=== PATIENT | female | born 1985 | race Caucasian/White ===

== ENCOUNTER 2016-08-04 09:15 | Emergency (ER) | payer BC ==
[2016-08-04 10:00] VITALS: BP 125/93
--- NOTE | 2016-08-04 10:25 | UC ---
FLU HPI - HPI Summary HPI Summary: 9 weeks , had cold symptoms for a couple of days, and temperature, called primary MD and is concerned that she has the flu - History of Current Complaint Chief Complaint: UCRespiratory Stated Complaint: FLU LIKE COMPLAINT Time Seen by Provider: 08/04/16 09:55 Hx Obtained From: Patient Hx Last Menstrual Period: 9 weeks ago ?: Yes Onset/Duration: Sudden Onset, Lasting Days - 3, Still Present - but better today than yesterday Severity Currently: Mild Severity Initially: Mild Associated Signs & Symptoms: Positive: Fever - subjective, Cough, Nasal Congestion - Allergy/Home Medications Allergies/Adverse Reactions: Allergies Allergy/AdvReac Type Severity Reaction Status Date / Time Cefaclor Allergy Intermediate Hives Verified 07/07/15 03:06 Home Medications: Home Medications Acetaminophen [Tylenol] 325 mg PO 08/04/16 [History] PMH/Surg Hx/FS Hx/Imm Hx Previously Healthy: No Cardiovascular History Of: Reports: Hypertension Psychological History Of: Reports: Depression - situational 2006 - Surgical History Surgical History: Yes Surgery Procedure, Year, and Place: rt ear lobe re constructed - Family History Known Family History: Positive: None Family History: denies cardiovascular issues in family lineage - Social History Occupation: Employed Full-time Lives: With Family Alcohol Use: None Substance Use Type: None Smoking Status (MU): Former Smoker Type: Cigarettes Length of Time of Smoking/Using Tobacco: 5 years Have You Smoked in the Last Year: No When Did the Patient Quit Smoking/Using Tobacco: prior to prenancy - Immunization History Most Recent Influenza Vaccination: 05/18/15 Most Recent Tetanus Shot: 03/29/15 Most Recent Pneumonia Vaccination: none Review of Systems Constitutional: Negative Skin: Negative Eyes: Negative ENT: Ear Ache, Nasal Discharge Respiratory: Cough Cardiovascular: Negative Gastrointestinal: Negative Genitourinary: Negative Motor: Negative Neurovascular: Negative Musculoskeletal: Negative Neurological: Negative Psychological: Negative All Other Systems Reviewed And Are Negative: Yes Physical Exam Triage Information Reviewed: Yes Appearance: Well-Appearing, No Pain Distress, Well-Nourished Vital Signs: Initial Vital Signs Temp 98.9 F 08/04/16 09:54 Pulse 109 08/04/16 09:54 Resp 18 08/04/16 09:54 BP 125/93 08/04/16 09:54 Pulse Ox 99 08/04/16 09:54 Vital Signs Reviewed: Yes Eye Exam: Normal Eyes: Positive: Conjunctiva Clear ENT Exam: Normal ENT: Positive: Normal ENT inspection, Hearing grossly normal, Pharynx normal, Nasal congestion, Nasal drainage, TMs normal. Negative: Tonsillar swelling, Tonsillar exudate, Trismus, Muffled/hoarse voice Dental Exam: Normal Neck exam: Normal Neck: Positive: Supple, Nontender, No Lymphadenopathy Respiratory Exam: Normal Respiratory: Positive: Chest non-tender, Lungs clear, Normal breath sounds, No respiratory distress, No accessory muscle use Cardiovascular Exam: Normal Cardiovascular: Positive: RRR, No Murmur, Pulses Normal, Brisk Capillary Refill Musculoskeletal Exam: Normal Musculoskeletal: Positive: Strength Intact, ROM Intact, No Edema Neurological Exam: Normal Neurological: Positive: Alert, Muscle Tone Normal Psychological Exam: Normal Skin Exam: Normal Diagnostics - Laboratory Diagnostic Studies Completed/Ordered: Influenza A/B (-) Flu Course/Dx - Course Course Of Treatment: increase fluids, cool mist humidification, prn tylenol, follow up with pcp - Differential Dx/Diagnosis Differential Diagnosis/HQI/PQRI: Influenza, Upper Respiratory Infection Provider Diagnoses: URI, 1st trimester Discharge - Discharge Plan Condition: Stable Disposition: HOME Patient Education Materials: Upper Respiratory Infection (ED), First Trimester (ED) Referrals: [facility] [Provider Group] - If Needed
== END 2016-08-04 10:30 | disposition home or self-care (01) ==
LOC: UCEAST 09:15
DX: O26.891 Other specified pregnancy related conditions, first trimester (principal); Z3A.09 9 weeks gestation of pregnancy; J06.9 Acute upper respiratory infection, unspecified; Z88.1 Allergy status to other antibiotic agents; Z87.891 Personal history of nicotine dependence
CPT/HCPCS: 87502; 99211; G0463

== ENCOUNTER 2017-03-11 03:34 | Inpatient (IN) | payer BC ==
[2017-03-11] MEDS ORDERED: Dibucaine 1% 28.35 GM TUBE PR PRN (05:52)
[2017-03-11] MEDS ORDERED: Glycerin ADULT SUPP PR PRN (05:52)
[2017-03-11] MEDS ORDERED: Witch Hazel PAD* JAR TOPICAL PRN (05:52)
[2017-03-11] MEDS ORDERED: OXYTOCIN* 10 UNITS/ML 1 ML VIAL IM ONE (05:52)
[2017-03-11] MEDS ORDERED: Misoprostol TAB* 200 MCG PR ONE (05:52)
[2017-03-11] MEDS ORDERED: Acetaminophen TAB* 325 MG PO PRN (05:52)
[2017-03-11] MEDS: Ibuprofen TAB* 600 MG PO PRN (09:11)
[2017-03-11] MEDS: Docusate CAP* 100 MG PO SCH ×2 (09:11→21:36)
[2017-03-12] MEDS: Docusate CAP* 100 MG PO SCH ×4 (04:44→20:18)
[2017-03-12 07:37] LABS: Hematocrit 27 % (35-47)
[2017-03-12 07:39] LABS: Hemoglobin 9.3 g/dl (12.0-16.0); Mean Corpuscular HGB Conc 35 g/dl (31-36); Mean Corpuscular Hemoglobin 31 pg (27-31); Mean Corpuscular Volume 89 fL (80-97); Mean Platelet Volume 9 um3 (7.4-10.4); Red Blood Count 3.04 10^6/ul (4.0-5.4); Red Cell Distribution Width 14 % (10.5-15)
[2017-03-12] MEDS: Ferrous Gluconate TAB* 324 MG TAB PO SCH ×2 (08:28→20:18)
[2017-03-12] MEDS: Amoxicillin PO (*) 500 MG CAP PO SCH ×3 (11:56→20:18)
[2017-03-12] MEDS: Ibuprofen TAB* 600 MG PO PRN (20:18)
[2017-03-13] MEDS: Amoxicillin PO (*) 500 MG CAP PO SCH ×2 (08:03→11:41)
[2017-03-13 09:00] VITALS: BP 117/74
[2017-03-13] MEDS: Docusate CAP* 100 MG PO SCH (11:40)
[2017-03-13] MEDS: Ferrous Gluconate TAB* 324 MG TAB PO SCH (11:40)
== END 2017-03-13 13:20 | disposition home or self-care (01) | DRG 560 ==
LOC: MCHOBOUT 03:34 → MCHOB 03:41
PROVIDERS: ADMIT Midwife; ATTEND Midwife
PROC: 10E0XZZ Delivery of Products of Conception, External Approach (ICD-10-PCS; principal; 2017-03-11)
PROC: 0HQ9XZZ Repair Perineum Skin, External Approach (ICD-10-PCS; 2017-03-11)
DX: O48.0 Post-term pregnancy (principal); D64.9 Anemia, unspecified; O62.3 Precipitate labor; O90.81 Anemia of the puerperium; O70.0 First degree perineal laceration during delivery; Z3A.40 40 weeks gestation of pregnancy; Z37.0 Single live birth
CPT/HCPCS: 36415; 85027; A9270-GY; J2590